=== PATIENT | male | born 1985 | race Caucasian/White ===

== ENCOUNTER 2018-02-08 23:11 | Observation (INO) | payer MEDICAID, SELFPAY ==
[2018-02-08 23:12] VITALS: BP 109/77; PULSE 137; RESP 26; TEMP 38.3; O2SAT 97; BMI 19.0
--- NOTE | 2018-02-08 23:26 | RAD_ITS ---
STUDY: X-RAY CHEST REASON FOR EXAM: Male, 32 years old. Short of breath and cough. TECHNIQUE: Single frontal view of the chest. COMPARISON: None. FINDINGS: The lungs are clear and expanded. There is no demonstrated pleural abnormality. Normal size heart. Normal mediastinum and rubi. Normal visualized pulmonary arteries. Normal visualized aortic arch and descending thoracic aorta. Normal visualized thoracic spine. Normal visualized ribs, clavicles, and shoulders. There is no demonstrated abnormality of the visualized soft tissue structures of the upper abdomen. RAD/Chest 1 View (Portable) IMPRESSION: Normal x-ray examination of the chest. Electronically Signed: Jamie Grubbs MD at 23:45 EDT , Service support ,
--- NOTE | 2018-02-08 23:26 | EKG12_ITS ---
Test Reason : SOB,COUGH Blood Pressure : / mmHG Vent. Rate : 135 BPM Atrial Rate : 135 BPM P-R Int : 162 ms QRS Dur : 086 ms QT Int : 274 ms P-R-T Axes : 079 094 061 degrees QTc Int : 411 ms Sinus tachycardia Biatrial enlargement Rightward axis Abnormal ECG Confirmed by JAVIER CORREIA, ADAMA ([id number]), pictures editor SERAFIN PEARSON ([id number] on 02/12/2018 2:54:36 PM Referred By: NASREEN Confirmed By:ADAMA HERRERA MD
[2018-02-08 23:30] VITALS: O2SAT 98
[2018-02-08 23:40] VITALS: PULSE 142; RESP 18; O2SAT 96
[2018-02-08] MEDS: Ipratropium/Albuterol Sulfate 3 ML AMPUL.NEB INHALATION (23:40)
[2018-02-08] MEDS: Albuterol 2.5 MG/3 ML VIAL.NEB. INHALATION (23:40)
[2018-02-08 23:45] LABS: Absolute Lymphocyte Count 1.57 X10^3/ul (0.83-4.51); Absolute Neutrophil Count 11.3 X10^3/uL (2.0-7.7); Basophil# 0.03 X10^3/uL; Basophil% 0.2 % (0-1); Eosinophil# 0.09 X10^3/uL; Eosinophils% 0.6 % (0-5); Hematocrit 43.4 % (40-54); Hemoglobin 15.3 g/dl (13.0-16.5); Lymphocyte # 1.57 X10^3/ul (4.0); Lymphocyte % 11.3 % (19-41); Mean Corp Hgb Conc 35.3 g/gl (32-36); Mean Corpuscular Hgb 31.5 pg (27.0-32.0); Mean Corpuscular Volume 89.5 fL (80-94); Mean Platelet Vol. 10.2 fl (6.2-12.0); Monocyte# 0.86 X10^3/uL; Monocyte% 6.2 % (0-10); Neutrophil # 11.26 X10^3/uL (2.7-7.7); Neutrophil % 81.4 % (47-70); Platelet Count 238 K/mm3 (150-450); RBC Distribution Width CV 12.7 % (11.6-14.6); RBC Distribution Width SD 41.9 fl (35.1-43.9); Red Blood Count 4.85 M/mm3 (4.6-6.2); White Blood Count 13.9 K/mm3 (4.4-11.0)
[2018-02-08 23:46] LABS: POSITIVE COUNT NO; POSITIVE DIFFERENTIAL NO; POSITIVE MORPHOLOGY NO
[2018-02-08 23:57] LABS: Anion Gap 8 (5-15); BUN 12 mg/dL (7-18); BUN/Creat Ratio 13.1 RATIO (10-20); Calcium,Total 9.3 mg/dL (8.5-10.1); Chloride 103 mmol/L (98-107); Creatinine, Serum 0.91 mg/dL (0.70-1.30); EST Glomerular Filtration Rate 104 mL/min (>60); Est Glom Filt Rate - Afr Amer 125 mL/min (>60); Estimated Creatinine Clearance 106.61 ml/min; Glucose 82 mg/dL (74-106); Potassium 3.6 mmol/L (3.5-5.1); Sodium Level 137 mmol/L (136-145)
[2018-02-08] MEDS: 0.9% Normal Saline 1,000 ML 1000 ML IV (23:58)
[2018-02-08] MEDS: Acetaminophen 500 MG Tablet 1000 MG PO (23:58)
[2018-02-09] VITALS (10 sets, daily range): BP systolic 99–118; BP diastolic 62–78; PULSE 68–117; RESP 16–19; TEMP 36.5–37.9; O2SAT 93–96; BMI 19.5; BMI 19.6
[2018-02-09 00:05] LABS: Lactic Acid 1.2 mmol/L (0.4-2.0)
--- NOTE | 2018-02-09 00:37 | ED.VISSUMM ---
- ER Visit Summary Date of Service: 02/09/18 Chief Complaint: Shortness of breath History of Present Illness: The patient is a 32 M who presents with shortness of breath. He complains of 2 days of rhinorrhea cough chills muscle and joint aches. He became short of breath beginning about 5 hours ago. He notes that his daughter was recently ill with a similar illness. He reports cough with occasional sputum but no hemoptysis. He complains of a mild headache which is now resolved. No nausea vomiting or diarrhea. Physical Examination: Initial heart rate 137, respiratory rate 26, temperature 101, normal blood pressure, pulse oximetry 97% on room air Moist mucous membranes Heart regular rhythm tachycardia Patient is tachypneic with increased work of breathing and has diffuse inspiratory index. Wheezing Abdomen soft nontender nondistended Alert Test Results: EKG shows sinus rhythm at a rate of 135. Labs notable for white blood cell count 13.9. Chemistry normal. Lactic normal. Rapid influenza is negative. Blood cultures have been sent. Chest x-ray is normal. Emergency Department Course and Treatment: Patient was treated with IV fluids and Tylenol. He was given albuterol and Atrovent aerosols. Although he was not hypoxic he was placed on nasal cannula at the time my exam due to his increased work of breathing for comfort. On reevaluation he does appear clinically improved as far as his respiratory status but remains significantly tachycardic. Rapid influenza has variable and potentially low sensitivity. Given his clinical presentation I am still significantly concerned that this is influenza. Therefore he was treated with Tamiflu. I do feel he should be admitted for monitoring. Treatment Plan: [] Disposition: Admit Impression: Suspected influenza This note was generated with [employer] dictation software. It may contain incorrect words, spelling, and punctuation that were not noted in review of the chart prior to signing ED Disposition - Plan for ED Patient: Chief Complaint: Cough Referrals: Andre Muro DO [Primary Care Provider] -
--- NOTE | 2018-02-09 00:39 | PCM.HP.STD ---
Problem List (1) Tobacco use Status: Chronic History of Present Illness Date of Admission: 02/09/18 Chief Complaint: Cough, Dysnea The patient is a 32 y/o M w/ PMHx: Tobacco use who presents to the [facility] ED on 02/09/18 with history of ongoing progressively worsening rhinorrhea, cough mildly productive, arthralgias, myalgias as well as headache x 2 days with progressively worsening dyspnea with wheezing over the last ~5 hours with recent ill contact (his daughter) with similar symptoms who has since improved he notes. In the ED work-up included T101, heart rate 137, BP 109/77, respiratory rate 26, 97% on room air, CBC with WBC 13.9, hemoglobin 15.3, platelet 238 with left shift, unremarkable BMP, lactic acid 1.2, chest x-ray with no acute findings, influenza rapid A and B negative, blood culture pending per ED. In the ED patient administered Tylenol, DuoNeb, albuterol, normal saline, Tamiflu. In the ED he notes feeling mildly improved w/ aerosols in regards to his dyspnea and noted increased work of breathing, accessory muscle usage and increased RR has improved. Past Medical History Past Medical History (Chronic Problems): Chronic Problems Tobacco use (Chronic) Allergies No Known Allergies Allergy (Verified 02/08/18 23:26) Home Medications: Ambulatory Orders Medication Instructions Recorded NK 02/08/18 Surgical History: - - R inguinal hernia repair. Psychiatric History: No pertinent psych hx Lives: Spouse/ Significant Other - Lives with his spouse and 2 young children. Smoking Status: Current every day smoker - ~6 cigarettes per day. Tobacco Use: Cigarettes Alcohol: Occasional Drugs: Marijuana - *Family History Maternal History Items: - - Patient notes a maternal grandfather w/ history of open heart surgery but otherwise notes his mother as healthy. Paternal History Items: Unknown - Does not know his father's history. Review of Systems Constitutional: Reports: Anorexia, Chills, Fever, Malaise, Weakness, Fatigue. Denies: Weight Change HEENT: Denies: Head Aches, Sinus Congestion, Sinus Drainage Cardiovascular: Denies: Chest Pain, Palpitations Respiratory: Reports: Cough, Shortness of Breath, Shortness of breath at rest, Shortness of breath upon exertion, Sputum production, Wheezing Gastrointestinal: Denies: Abdominal Pain, Nausea, Vomiting Genitourinary: Denies: Dysuria Musculoskeletal: Reports: Back Pain, Joint Pain, Muscle pain. Denies: Joint Tenderness Skin: Denies: Rash, Wounds Neurological: Denies: Numbness, Tingling, Focal weakness Psychiatric: Denies: Anxiety, Depression, Homicidal Ideations, Suicidal Ideations Hematologic/ Lymphatic: Denies: Easy Bruising, Easy Bleeding VTE Information - Inpt Only VTE Present on Admission: No VTE Mechan Device Prophylaxis: SCD's VTE Pharm Prophylaxis ordered?: No Reason prophylaxis not ordered:: Treatment Not Indicated Subjective: Seated upright in the ED bed, fatigued appearance, notes feeling less dyspneic since initial ED presentation. Objective: Physical Examination: General: awake, alert, oriented x 3 and cooperative, seated upright in the ED bed, ill appearing, flushed, improved decreased work of breathing, lessened accessory muscle usage and decreased RR since initial ED presentation. Skin: Flushed color, turgor, no icterus, cyanosis. HEENT: AT/NC, EOMI, PERRLA, dry MM, no carotid bruits or JVD noted. Lungs: BL coarse, rhonchorous, diffuse inspiratory and expiratory wheezing, harsh coughing, improved decreased work of breathing, lessened accessory muscle usage and decreased RR since initial ED presentation. Heart: Tachycardic with regular rhythm; no gallop, rub audible. Abdomen: soft, NTTP, ND, normal BS, no HSM. Extremities: no cyanosis, clubbing, or edema. Neurological: patient awake, alert, oriented x 3; cognitive function intact; pupils equally reactive to light and accomodation; cranial nerves II-XII grossly normal, moving all 4 extremities, no focal deficits, strength severely globally decreased secondary to acute presentation. Psychiatric: affect appears fatigued, no acute evidence of depressive or anxiety feelings. - Physical Exam Vital Signs Temp Pulse Resp BP Pulse Ox 101 F H 142 H 18 109/77 96 02/08/18 23:12 02/08/18 23:40 02/08/18 23:40 02/08/18 23:12 02/08/18 23:40 Oxygen Flow Rate (L/min) 2 Oxygen Delivery Method Nasal Cannula Weight: 140 lb Body Mass Index (BMI) 19.0 Microbiology Past 72 Hours 02/08/18 23:32 Influenza Types A,B Direct FA (CINTHIA) - Final Mucosa - Nasopharyngeal Laboratory Tests Past 24 Hrs 02/08/18 02/08/18 02/08/18 23:30 23:30 23:30 WBC 13.9 H RBC 4.85 Hgb 15.3 Hct 43.4 MCV 89.5 MCH 31.5 MCHC 35.3 RDW 12.7 RDW Differential 41.9 Plt Count 238 MPV 10.2 Immature Gran % (Auto) 0.300 Neut % (Auto) 81.4 H Lymph % (Auto) 11.3 L Sterling % (Auto) 6.2 Eos % (Auto) 0.6 Baso % (Auto) 0.2 Absolute Neuts (auto) 11.3 H Absolute Lymphs (auto) 1.57 Total Counted Not Reportable Sodium 137 Potassium 3.6 Chloride 103 Carbon Dioxide 26.0 Anion Gap 8 BUN 12 Creatinine 0.91 Estim Creat Clear Calc 106.61 Est GFR (MDRD) Af Amer 125 Est GFR (MDRD) Non-Af 104 BUN/Creatinine Ratio 13.1 Glucose 82 Lactic Acid 1.2 Calcium 9.3 Assessment/Plan The patient is a 32 y/o M w/ PMHx: Tobacco use who presents to the [facility] ED on 02/09/18 with history of ongoing progressively worsening rhinorrhea, cough mildly productive, arthralgias, myalgias as well as headache x 2 days with progressively worsening dyspnea with wheezing over the last ~5 hours with recent ill contact (his daughter) with similar symptoms who has since improved he notes. (1) Acute Sepsis secondary to Acute Respiratory Failure secondary to General Malaise, Cough, Fever, Arthralgias, Myalgias, General Debility concerning for Influenza Viral Syndrome w/ Viral Bronchitis: CXR in the ED w/ no acute findings. ED presentation w/ increased work of breathing, accessory muscle usage and increased RR w/ notable wheezing, improved w/ aerosols. Admission CBC w/ WBC 13.9 with L shift. Rapid negative A/B Influenza. Given Tamiflu secondary to ED concerns for influenza. Will admit to [facility], maintain on telemetry, maintain on oxygen with wean as tolerated, continue tamiflu pending respiratory viral panel results given improved sensitivity, continue ATC duonebs, PRN albuterol, IV solumedrol, HOB, IS parameters w/ pending Bld cx x 2 from ED. (2) Tobacco Abuse: Encouraged cessation, inpatient consultation per RT, NR if desired. (3) DVT Prophylaxis: TEDs, low risk, ambulation. Code Visit OBSV E&M: 16565 Initial observation care L3
[2018-02-09] MEDS: Oseltamivir Phosphate 75 MG Capsule PO (01:18)
[2018-02-09] MEDS: 0.9% Normal Saline 1,000 ML 999 ML IV (01:18)
[2018-02-09] MEDS: 0.9% Normal Saline 1,000 ML 150 ML IV (01:57)
[2018-02-09] MEDS: MethylPREDNISolone 125 MG/2 ML Vial IV (02:58)
[2018-02-09 06:25] LABS: Absolute Lymphocyte Count 0.72 X10^3/ul (0.83-4.51); Absolute Neutrophil Count 8.3 X10^3/uL (2.0-7.7); Basophil# 0.03 X10^3/uL; Basophil% 0.3 % (0-1); Eosinophil# 0.01 X10^3/uL; Eosinophils% 0.1 % (0-5); Hematocrit 41.4 % (40-54); Lymphocyte # 0.72 X10^3/ul (4.0); Lymphocyte % 7.7 % (19-41); Mean Corp Hgb Conc 33.8 g/gl (32-36); Mean Corpuscular Hgb 30.8 pg (27.0-32.0); Mean Corpuscular Volume 91.2 fL (80-94); Mean Platelet Vol. 10.8 fl (6.2-12.0); Monocyte# 0.22 X10^3/uL; Monocyte% 2.4 % (0-10); Neutrophil # 8.31 X10^3/uL (2.7-7.7); Neutrophil % 89.3 % (47-70); Platelet Count 232 K/mm3 (150-450); RBC Distribution Width CV 12.8 % (11.6-14.6); Red Blood Count 4.54 M/mm3 (4.6-6.2); White Blood Count 9.3 K/mm3 (4.4-11.0)
[2018-02-09 06:26] LABS: Anion Gap 6 (5-15); BUN 9 mg/dL (7-18); BUN/Creat Ratio 10.7 RATIO (10-20); Calcium,Total 8.9 mg/dL (8.5-10.1); Chloride 112 mmol/L (98-107); Creatinine, Serum 0.84 mg/dL (0.70-1.30); EST Glomerular Filtration Rate 114 mL/min (>60); Est Glom Filt Rate - Afr Amer 138 mL/min (>60); Estimated Creatinine Clearance 119.13 ml/min; Glucose 109 mg/dL (74-106); Potassium 4.8 mmol/L (3.5-5.1); Sodium Level 144 mmol/L (136-145)
[2018-02-09 06:29] LABS: POSITIVE COUNT NO; POSITIVE DIFFERENTIAL NO; POSITIVE MORPHOLOGY NO
[2018-02-09] MEDS: Ipratropium/Albuterol Sulfate 3 ML AMPUL.NEB INHALATION ×2 (06:42→11:05)
--- NOTE | 2018-02-09 09:34 | DCINST_ITS ---
- Discharge Diagnoses Current Active Problems: Current Active and Chronic Problems Tobacco use (Chronic) You will use the following diet at home:: Regular Discharge Activity: Return to Normal Activity Allergies/Adverse Reactions: Allergies No Known Allergies Allergy (Verified 02/08/18 23:26) Medications to take at Discharge Albuterol IH (ProAir) [Proair Hfa] 2 puff INHALATION Q4H PRN PRN #1 inhaler 02/09/18 Guaifenesin [Mucinex] 1,200 mg PO BID #14 tab 02/09/18 Ibuprofen [Motrin] 400 mg PO Q4H PRN PRN #20 tablet 02/09/18 Multivitamin [Multiple Vitamins] 1 each PO DAILY 02/09/18 Prednisone 20 mg PO BID #10 tablet 02/09/18 The following prescriptions were given: Albuterol IH (ProAir) [Proair Hfa] 2 puff INHALATION Q4H PRN PRN #1 inhaler PRN Reason: Dyspnea/Wheezing/Sob Guaifenesin [Mucinex] 1,200 mg PO BID #14 tab Ibuprofen [Motrin] 400 mg PO Q4H PRN PRN #20 tablet PRN Reason: Pain Prednisone 20 mg PO BID #10 tablet Primary Care Physician: Andre Muro DO [Primary Care Provider] - Please follow up with your Primary Care Physician in: in 5-7 Test Results: Test results from this visit will be discussed in further detail at your follow- up appointment, if applicable. Proposed Discharge Date: 02/09/18
--- NOTE | 2018-02-09 09:35 | PCM.DC.SUM ---
Discharge Date and Diagnosis - Problem List Patient Problems: Active and Suspected Problems Acute bronchospasm due to viral infection (Acute) Date of Admission: 02/09/18 Date of Discharge: 02/09/18 - Primary Discharge Diagnosis Active and Suspected Problems Acute bronchospasm due to viral infection (Acute) - Secondary Discharge Diagnosis Chronic Problems Tobacco use (Chronic) Hospital Course and Treatment Imaging Results: Clinical Impression(s) from Imaging Studies Chest X-Ray 02/08/18 23:26 IMPRESSION: Normal x-ray examination of the chest. Electronically Signed: Jamie Grubbs MD at 23:45 EDT , Service support , Summary of Care Provided: The patient is a 32 year old M history of tobacco dependence who presented with generalized aches fever as well as cough. 1. Sepsis syndrome secondary to acute viral infection patient was admitted to regular nursing floor managed symptomatically with IV fluids pain medication and empirically started on Tamiflu from the ER with suspicion for influenza. Patient influenza as he however came back negative 2. Acute bronchospasm secondary to above patient was managed with steroids and bronchodilator treatment prescriptions were written on discharge next 3. Tobacco dependence counseled on cessation, offered nicotine patch for tobacco cravings 4. DVT prophylaxis; low risk did encourage early ambulation Physical exams on discharge: GENERAL: cooperative HEENT: Atraumatic; moist oral mucosa EYES; Anicteric, Normal Conjunctiva NECK; supple, normal thyroid, no distended JVD. RESPIRATORY: Diminished to auscultation bilaterally, CARDIOVASCULAR: Regular S1 S2, no audible murmurs GI: soft, non-tender, normoactive bowel sounds, SKIN: No Rash PSYCH; Normal affect Discharge Activity: Return to Normal Activity Home Medications: Medications to take at Discharge Albuterol IH (ProAir) [Proair Hfa] 2 puff INHALATION Q4H PRN PRN #1 inhaler 02/09/18 Guaifenesin [Mucinex] 1,200 mg PO BID #14 tab 02/09/18 Ibuprofen [Motrin] 400 mg PO Q4H PRN PRN #20 tablet 02/09/18 Multivitamin [Multiple Vitamins] 1 each PO DAILY 02/09/18 Prednisone 20 mg PO BID #10 tablet 02/09/18 Following Prescrptions Were Given to Patient: Albuterol IH (ProAir) [Proair Hfa] 2 puff INHALATION Q4H PRN PRN #1 inhaler PRN Reason: Dyspnea/Wheezing/Sob Guaifenesin [Mucinex] 1,200 mg PO BID #14 tab Ibuprofen [Motrin] 400 mg PO Q4H PRN PRN #20 tablet PRN Reason: Pain Prednisone 20 mg PO BID #10 tablet Primary Care Physician: Andre Muro DO [Primary Care Provider] - Please follow up with your Primary Care Physician in: in 5-7 Disposition: Home Minutes spent on discharge:: 35 Patient Condition:: Stable Medical Necessity - Tobacco Use Smoking Status: Current every day smoker Tobacco Use: Cigarettes Meaningful Use Info Meaningful Use Diagnoses (Choose all that apply): None applicable Code Visit OBSV E&M: 73702 Observ/hosp same date L3
== END 2018-02-09 11:31 | disposition home or self-care (01) ==
LOC: ED 23:55 → MS3 02-09 01:05
PROVIDERS: Admitting Provider Family Medicine; Emergency Provider Emergency Medicine; Family Provider Family Medicine; PCP Family Medicine; Visit Provider Internal Medicine
DX: A41.9 Sepsis, unspecified organism (principal); J98.01 Acute bronchospasm; B34.9 Viral infection, unspecified; F17.210 Nicotine dependence, cigarettes, uncomplicated; J96.00 Acute respiratory failure, unspecified whether with hypoxia or hypercapnia
CPT/HCPCS: 36415; 71045; 80048; 83605; 85025; 87040; 87633; 87804; 93005; 94640; 96361; 96374; 96376; 99218; 99284; 99406; J7030; G0378